=== PATIENT | male | born 1950 | race Caucasian/White ===

== ENCOUNTER → 2016-12-18 | Outpatient (CLI) | payer OTHER ==
[~2016-12-18] MED LIST: *BLDWK7; /OMEP10CA; KLS75TAB; immodium
== END ==
LOC: M WUC 09:28
PROVIDERS: ATTEND Urology
DX: Z85.46 Personal history of malignant neoplasm of prostate (principal)

== ENCOUNTER → 2017-06-18 | Outpatient (CLI) | payer OTHER | LOC: M WUC 09:29 | PROVIDERS: ATTEND Registered Nurse Emergency | DX: C61 Malignant neoplasm of prostate (principal) ==

== ENCOUNTER → 2017-08-17 | Outpatient (CLI) | payer OTHER ==
[2017-08-17 13:48] LABS: BASO # 0.1 10^3/uL (0.0-0.2); BASO % 1.1 % (0.0-1.0); EOS # 0.2 10^3/uL (0.0-0.50); EOS % 3.1 % (0.0-3.0); HEMATOCRIT 41.3 % (42.0-52.0); HEMOGLOBIN 13.8 g/dl (14.0-18.0); IMMATURE GRANULOCYTE % 0.1 % (0-0); LYMPH # 1.3 10^3/uL (1.5-4.5); MEAN CORPUSCULAR HEMOGLOBIN 29.7 pg (27.0-33.0); MEAN CORPUSCULAR HGB CONC 33.4 g/dl (32.0-36.5); MONO # 0.5 10^3/uL (0.0-0.8); MONO % 7.7 % (0.0-5.0); NEUTROPHILS # 4.9 10^3/uL (1.8-7.7); PLATELET COUNT, AUTOMATED 275 10^3/uL (150-450); RED BLOOD COUNT 4.64 10^6/uL (4.30-6.10); RED CELL DISTRIBUTION WIDTH 12.7 % (11.5-14.5)
[2017-08-17 14:28] LABS: FERRITIN 566 NG/ML (26-388); IRON (FE) 116 UG/DL (65-175); PERCENT SATURATION 43.3 % (19.7-50.0); TOTAL IRON BINDING CAPACITY 268 UG/DL (250-450)
== END ==
LOC: M WUC 10:31
DX: Z01.812 Encounter for preprocedural laboratory examination (principal); D64.9 Anemia, unspecified; M17.12 Unilateral primary osteoarthritis, left knee
CPT/HCPCS: 82040

== ENCOUNTER → 2018-01-06 | Outpatient (CLI) | payer OTHER ==
[2018-01-06 13:05] LABS: PROSTATIC SPECIFIC AG MONITOR 0.98 NG/ML (< 4.0)
== END ==
LOC: M WUC 09:19
DX: Z85.46 Personal history of malignant neoplasm of prostate (principal)
CPT/HCPCS: 84153

== ENCOUNTER → 2018-07-07 | Outpatient (CLI) | payer OTHER | LOC: M WUC 10:49 | PROVIDERS: ATTEND Urology | DX: C61 Malignant neoplasm of prostate (principal) ==

== ENCOUNTER → 2018-07-14 | Outpatient (CLI) | payer OTHER ==
--- NOTE | 2018-07-14 11:53 | REP ---
Clinical: Acute bronchitis . Comparison: 11/14/2008 . Technique: PA and lateral. Findings: The mediastinum and cardiac silhouette are normal. The lung jean are clear and without acute consolidation, effusion, or pneumothorax. The skeletal structures are intact and normal. Impression: 1. No focal consolidation. Electronically Signed by Hector Olivo MD 07/14/2018 11:45 A
== END ==
LOC: M WUC 11:17
PROVIDERS: ATTEND Physician Assistant
DX: J20.9 Acute bronchitis, unspecified (principal)

== ENCOUNTER → 2018-08-25 | Outpatient (CLI) | payer OTHER ==
--- NOTE | 2018-08-25 16:10 | REP ---
Chest two views HISTORY: Cough Comparison: 07/14/1989 The lungs are clear. The heart is normal in size. The pulmonary vasculature is normal in appearance. There is an old compression fracture of an upper thoracic vertebral body. IMPRESSION: No acute disease. Electronically Signed by Boo Roa MD 08/25/2018 04:01 P
== END ==
LOC: M WUC 11:58
PROVIDERS: ATTEND Family Medicine
DX: R05 Cough (principal)

== ENCOUNTER → 2019-01-18 | Outpatient (CLI) | payer MEDICARE | LOC: M WUC 15:05 | PROVIDERS: ATTEND Urology | DX: Z85.46 Personal history of malignant neoplasm of prostate (principal) ==

== ENCOUNTER 2019-05-25 12:15 | Day surgery (SDC) | payer MEDICARE ==
[~2019-05-25] VITALS: Ht 175.3 cm; Wt 118.4 kg
[~2019-05-25 12:15] MED LIST changes: +FLOM0.4C39 PO; +LISI10TA4 PO; +NAPR-837 PO; +NS 1,000 ML IV SCH; +ZANT150T40 PO
[2019-05-25] MEDS ORDERED: PROPOFOL 200 MG/20 ML VIAL As Ordered ONE (14:33)
[2019-05-25] MEDS ORDERED: LIDOCAINE 2% INJ 100 MG/5 ML SDV (FOR ANES.) As Ordered ONE (14:33)
--- NOTE | 2019-05-25 14:34 | ROOR ---
Patient Name: Art Keller Procedure Date: 05/25/2019 2:13 PM Date of : 1950 Age: 68 Room: [facility] Gender: Male Note Status: Finalized Procedure: Colonoscopy Indications: Screening for colorectal malignant neoplasm Providers: Jermaine Aragon Jr, MD Referring MD: Devon Gupta MD Requesting Provider: Medicines: Propofol per Anesthesia Complications: No immediate complications. Procedure: Pre-Anesthesia Assessment: - Prior to the procedure, a History and Physical was performed, and patient medications and allergies were reviewed. The patient is competent. The risks and benefits of the procedure and the sedation options and risks were discussed with the patient. All questions were answered and informed consent was obtained. Patient identification and proposed procedure were verified by the physician and the nurse in the pre-procedure area and in the procedure room. Mental Status Examination: alert and oriented. Airway Examination: normal oropharyngeal airway and neck mobility. Respiratory Examination: clear to auscultation. CV Examination: normal. ASA Grade Assessment: II - A patient with mild systemic disease. After reviewing the risks and benefits, the patient was deemed in satisfactory condition to undergo the procedure. The anesthesia plan was to use moderate sedation / analgesia (conscious sedation). Immediately prior to administration of medications, the patient was re-assessed for adequacy to receive sedatives. The heart rate, respiratory rate, oxygen saturations, blood pressure, adequacy of pulmonary ventilation, and response to care were monitored throughout the procedure. The physical status of the patient was re-assessed after the procedure. The Colonoscope was introduced through the anus and advanced to the cecum, identified by appendiceal orifice and ileocecal valve. The colonoscopy was performed without difficulty. The patient tolerated the procedure well. The quality of the bowel preparation was adequate. Findings: Multiple small and large-mouthed diverticula were found in the sigmoid colon. The rectum, descending colon, transverse colon, ascending colon, cecum, appendiceal orifice and ileocecal valve appeared normal. A polyp was found in the recto-sigmoid colon. The polyp was removed with a cold snare. Resection and retrieval were complete. Impression: - Diverticulosis in the sigmoid colon. - The rectum, descending colon, transverse colon, ascending colon, cecum, appendiceal orifice and ileocecal valve are normal. - One polyp at the recto-sigmoid colon, removed with a cold snare. Resected and retrieved. Recommendation: - Discharge patient to home (ambulatory). - Repeat colonoscopy in 5 years for surveillance based on pathology results. Jermaine Aragon MD Jermaine Aragon Jr, MD 05/25/2019 2:33:58 PM Electronically signed by Jermaine Aragon Jr, MD Number of Addenda: 0 Note Initiated On: 05/25/2019 2:13 PM Estimated Blood Loss: Estimated blood loss: none.
[2019-05-25 14:56] VITALS: BP 130/86
== END 2019-05-25 15:05 | disposition home or self-care (01) ==
LOC: M OPP 12:15
PROVIDERS: ATTEND Surgery
DX: Z12.11 Encounter for screening for malignant neoplasm of colon (principal); K57.30 Diverticulosis of large intestine without perforation or abscess without bleeding; D12.7 Benign neoplasm of rectosigmoid junction; I10 Essential (primary) hypertension; K21.9 Gastro-esophageal reflux disease without esophagitis; M19.90 Unspecified osteoarthritis, unspecified site; Z92.3 Personal history of irradiation; N40.1 Benign prostatic hyperplasia with lower urinary tract symptoms; Z87.891 Personal history of nicotine dependence; Z85.46 Personal history of malignant neoplasm of prostate; Z88.5 Allergy status to narcotic agent; Z79.899 Other long term (current) drug therapy

== ENCOUNTER → 2019-10-06 | Outpatient (CLI) | payer MEDICARE ==
[~2019-10-06] MED LIST changes: -NS 1,000 ML IV SCH
[2019-10-07 14:11] LABS: PSA TOTAL 0.4 ng/mL (0.0-4.0)
== END ==
LOC: M WUC 10:28
PROVIDERS: ATTEND Nurse Practitioner Family
DX: Z85.46 Personal history of malignant neoplasm of prostate (principal)

== ENCOUNTER 2020-03-19 17:04 | Inpatient (IN) | payer MEDICARE ==
[~2020-03-19] VITALS: Ht 175.3 cm; Wt 120.1 kg
[2020-03-19] MEDS ORDERED: OMEP10CASR PO (17:14)
[2020-03-19] MEDS ORDERED: ATOR1TAB19 PO (17:14)
[2020-03-19] MEDS ORDERED: KETOROLAC 30 MG/ML 1ML VIAL IV ONE (18:30)
[2020-03-19] MEDS ORDERED: ONDANSETRON 4MG/2ML VIAL IV ONE (18:30)
[2020-03-19] MEDS ORDERED: NS 1,000 ML IV ONE (18:30)
[2020-03-19 18:33] LABS: BASO % 0.4 % (0.0-1.0); EOS # 0.1 10^3/uL (0.0-0.5); EOS % 0.7 % (0.0-3.0); HEMATOCRIT 45.2 % (42.0-52.0); HEMOGLOBIN 15.2 g/dl (13.5-17.5); LYMPH # 0.9 10^3/uL (1.5-5.0); LYMPH % 8.9 % (24.0-44.0); MEAN CORPUSCULAR HEMOGLOBIN 29.9 pg (27.0-33.0); MEAN CORPUSCULAR HGB CONC 33.6 g/dl (32.0-36.5); MEAN CORPUSCULAR VOLUME 88.8 fl (80.0-96.0); MONO # 1.2 10^3/uL (0.0-0.8); MONO % 11.6 % (0.0-5.0); NEUTROPHILS # 8.2 10^3/uL (1.5-8.5); NEUTROPHILS % 78.1 % (36.0-66.0); PLATELET COUNT, AUTOMATED 293 10^3/uL (150-450); RED BLOOD COUNT 5.09 10^6/uL (4.30-6.10); WHITE BLOOD COUNT 10.5 10^3/uL (4.0-10.0)
[2020-03-19 18:59] LABS: ALBUMIN 4.1 GM/DL (3.2-5.2); ALT/SGPT 34 U/L (12-78); BILIRUBIN,DIRECT 0.4 MG/DL (0.0-0.2); BILIRUBIN,TOTAL 1.1 MG/DL (0.2-1.0); BLOOD UREA NITROGEN 26 MG/DL (7-18); CALCIUM LEVEL 9.2 MG/DL (8.8-10.2); CARBON DIOXIDE LEVEL 29 MEQ/L (21-32); CHLORIDE LEVEL 102 MEQ/L (98-107); CREATININE FOR GFR 1.09 MG/DL (0.70-1.30); GLOMERULAR FILTRATION RATE > 60.0 (>49); GLUCOSE, FASTING 174 MG/DL (70-100); LIPASE 30 U/L (73-393); POTASSIUM SERUM 3.9 MEQ/L (3.5-5.1); SODIUM LEVEL 139 MEQ/L (136-145); TOTAL PROTEIN 7.7 GM/DL (6.4-8.2)
[2020-03-19] MEDS ORDERED: ISOVUE-370 76% 100ML VIAL As Ordered ONE (19:11)
--- NOTE | 2020-03-19 19:57 | REPVR ---
PROCEDURE INFORMATION: Exam: CT Abdomen And Pelvis With Contrast Exam date and time: 03/19/2020 7:27 PM Age: 69 years old Clinical indication: Abdominal pain; Localized; Other: Central abd pain, no tolerate po TECHNIQUE: Imaging protocol: Computed tomography of the abdomen and pelvis with intravenous contrast. Radiation optimization: All CT scans at this facility use at least one of these dose optimization techniques: automated exposure control; mA and/or kV adjustment per patient size (includes targeted exams where dose is matched to clinical indication); or iterative reconstruction. Contrast material: ISOVUE 370; Contrast volume: 100 ml; Contrast route: INTRAVENOUS (IV); COMPARISON: No relevant prior studies available. FINDINGS: Lungs: 9 mm noncalcified nodule right lower lobe adjacent to the major fissure. 10 mm lobular noncalcified nodule left lower lobe. Liver: There is a diffuse decrease in hepatic parenchymal density, consistent with steatosis. Gallbladder and bile ducts: Normal. No calcified stones. No ductal dilation. Pancreas: Normal. No ductal dilation. Spleen: The spleen demonstrates punctate calcifications, consistent with remote granulomatous organism exposure. Adrenals: Normal. No mass. Kidneys and ureters: Normal. No hydronephrosis. Stomach and bowel: Multiple dilated small bowel loops transitioning to normal caliber in the right lower quadrant. Findings consistent with small-bowel obstruction. No significant colonic dilatation. Appendix: No evidence of appendicitis. Intraperitoneal space: Unremarkable. No free air. No significant fluid collection. Vasculature: The aortoiliac vessels demonstrate mild atherosclerotic calcification. Lymph nodes: Unremarkable. No enlarged lymph nodes. Bladder: Contracted urinary bladder. Reproductive: Fiducials demonstrated within the prostate gland. Bones/joints: Mild retrolisthesis of L5 on S1. Moderate to severe central spinal stenosis L3-L4 and severe central spinal stenosis L4-L5. Chronic fracture deformity right inferior pubic ramus. Soft tissues: Unremarkable. IMPRESSION: 1. 9 mm noncalcified nodule right lower lobe adjacent to the major fissure. 10 mm lobular noncalcified nodule left lower lobe. For patients at low risk (minimal or absent history of smoking and of other known risk factors), recommend CT at 3-6 months, then consider CT at 18-24 months. For patients at high risk (history of smoking or of other known risk factors), recommend CT at 3-6 months, then CT at 18-24 months. (Ruba et al., Fleischner Society, 2017) 2. There is a diffuse decrease in hepatic parenchymal density, consistent with steatosis. 3. Multiple dilated small bowel loops transitioning to normal caliber in the right lower quadrant. Findings consistent with small-bowel obstruction. Electronically signed by: Justin Ackerman On 03/19/2020 19:57:10 PM
[2020-03-19] MEDS ORDERED: OMEP1CAP73 PO (20:39)
[2020-03-19] MEDS: ATORVASTATIN 10 MG TAB PO SCH (21:00)
[2020-03-19] MEDS: LR 1,000 ML IV SCH (21:22)
[2020-03-19] MEDS ORDERED: ACETAMINOPHEN TAB 650MG DOSE (2X325MG) PO PRN (21:30)
[2020-03-19] MEDS ORDERED: ONDANSETRON 4MG/2ML VIAL IV PRN (21:30)
[2020-03-19] MEDS ORDERED: MORPHINE 2 MG/ML 1ML VIAL (J2270) IV PRN (21:30)
--- NOTE | 2020-03-19 21:43 | IPNPDOC ---
Text Note Date of Service The patient was seen on 03/19/20. NOTE Patient with one day history of abdominal distention, central abdominal crampy pain though reports intermittent flatus, bm this morning Impression and plan Partial small bowel obstruction history of prostate/pelvic radiation NGT IVF serial exams ditation [id number] VS,Fishbone, I+O VS, Fishbone, I+O Laboratory Tests 03/19/20 18:11 Vital Signs Date Time Temp Pulse Resp B/P (MAP) Pulse Ox O2 Delivery O2 Flow Rate FiO2 03/19/20 19:34 99.2 03/19/20 19:25 81 17 149/75 (99) 93 Room Air MARYANN KELLY MD Mar 19, 2020 21:43
[2020-03-20] MEDS: KETOROLAC 30 MG/ML 1ML VIAL IV PRN ×3 (01:52→15:59)
[2020-03-20 03:32] VITALS: BP 142/83
[2020-03-20 06:00] VITALS: BP 145/82
[2020-03-20 06:35] LABS: BASO % 0.4 % (0.0-1.0); EOS # 0.2 10^3/uL (0.0-0.5); EOS % 2.4 % (0.0-3.0); HEMATOCRIT 40.1 % (42.0-52.0); HEMOGLOBIN 13.3 g/dl (13.5-17.5); LYMPH # 1.4 10^3/uL (1.5-5.0); LYMPH % 15.3 % (24.0-44.0); MEAN CORPUSCULAR HEMOGLOBIN 30.2 pg (27.0-33.0); MEAN CORPUSCULAR HGB CONC 33.2 g/dl (32.0-36.5); MEAN CORPUSCULAR VOLUME 90.9 fl (80.0-96.0); MONO # 1.4 10^3/uL (0.0-0.8); MONO % 15.7 % (0.0-5.0); NEUTROPHILS # 5.9 10^3/uL (1.5-8.5); PLATELET COUNT, AUTOMATED 253 10^3/uL (150-450); RED BLOOD COUNT 4.41 10^6/uL (4.30-6.10)
[2020-03-20 06:57] LABS: BLOOD UREA NITROGEN 31 MG/DL (7-18); CALCIUM LEVEL 8.4 MG/DL (8.8-10.2); CARBON DIOXIDE LEVEL 30 MEQ/L (21-32); CHLORIDE LEVEL 106 MEQ/L (98-107); CREATININE FOR GFR 1.08 MG/DL (0.70-1.30); GLOMERULAR FILTRATION RATE > 60.0 (>49); GLUCOSE, FASTING 146 MG/DL (70-100); POTASSIUM SERUM 3.4 MEQ/L (3.5-5.1); SODIUM LEVEL 142 MEQ/L (136-145)
--- NOTE | 2020-03-20 07:45 | HPE ---
DATE OF ADMISSION: 03/19/2020 CHIEF COMPLAINT: Abdominal distention, central abdominal pain, nausea and vomiting. HISTORY OF PRESENT ILLNESS: Mr. Keller is a 69-year-old gentleman, who presented to the Emergency Department today with complaints of one day history of crampy central abdominal pain, associated with nausea, abdominal distention and now vomiting. He was in his usual state of health up until last night when he started feeling some crampy abdominal pain. This sort of calmed down through the night. This morning when he woke up, he could not keep anything down even the liquids that he drank he would throw it up probably about 30 minutes after drinking it. He reports discomfort over his central abdomen. He did have a normal bowel movement this morning and still reports passing intermittent flatus. Patient feels bloated and mildly uncomfortable. He had a prior episode back in 2008, where he had some enterocolitis and subsequently had an ileus versus partial small bowel obstruction, which was treated with nasogastric tube bile decompression and improved immediately. In between this, he had radiation to his pelvis secondary to prostate cancer. He does not have any history of hernia nor any history of abdominal surgeries. Patient reports feeling mildly improved and has not thrown up for about 7 to 8 hours now, though he still has some occasional crampy abdominal discomfort. Denies fevers or chills, or any sick contacts. ALLERGIES: Oxycodone. PAST MEDICAL HISTORY: Patient reports mild hearing loss. Reports history of hypertension, gastroesophageal reflux disease, as mentioned history of prostate cancer; treated with radiation, history of back pain; herniated disc, arthritis, history of fractures to the pelvis and tailbone. PAST SURGICAL HISTORY: As mentioned includes back surgery for herniated disc L4, L5, left knee total replacement. REVIEW OF SYSTEMS: Patient was in his usual state of health prior to the start of his symptoms last night. Patient denies any ongoing abnormal weight loss. No fevers or chills reported. No travel or sick contacts. He does report some mild hearing loss. He is not using any hearing aids. He wears glasses. Denies any hoarseness of voice or problems with swallowing. Patient denies any breathing problems, chronic cough or cold, or sleep apnea. Denies any chest pain on effort, angina, or paroxysmal nocturnal dyspnea. He does have hypertension and is treated with medication. He denies ay history of diabetes, though he is being suspected in being worked up currently. He denies any heat or cold intolerance. He does have some back problems. Gastrointestinal symptoms enumerated in the HPI. He had a prior colonoscopy last year in 2019, just showing tubular polyps. He reports history of gastroesophageal reflux. Patient denies any dysuria. He has a history of prostate cancer, for which he was treated with radiation and is in remission. He is taking Flomax. He denies any dribbling, nocturia or hematuria. Patient does not smoke. PHYSICAL EXAMINATION: VITALS: On arrival temp 98.1, pulse rate 96, respiratory rate 18, blood pressure 138/94, 98% on room air. HEENT: Patient seen in the room, appears relatively comfortable. He is able to get up from a supine position, not showing much discomfort. He is pleasant and cooperative. Fairly well built. Does not look chronically ill. HEENT: Normocephalic, atraumatic. [place] palpebral conjunctivae. NECK: Short and supple. CHEST: Kind of barrel-chested with no impaired respiratory effort. Lung sounds are clear to auscultation bilaterally, without wheezing. HEART: Regular heart rate and rhythm, without murmurs. ABDOMEN: Tensely distended, but remains soft, quite tympanitic to percussion. No significant umbilical or groin herniation. No surgical scars appreciated. Minimally uncomfortable but no definite tenderness on deep and light palpation. No rebound or guarding. Abdomen is quite quiet. EXTREMITIES: Does not show any significant edema. ANCILLARY STUDIES/LABORATORIES: White count 10.5, hemoglobin 15.2, hematocrit 45.2, platelet count 293,000. Sodium 139, potassium 3.9, chloride 102, CO2 29, BUN 26, creatinine 1.09, glucose 174. Total bilirubin 1.1 with direct only 0.4. The rest of AST, ALT normal. Alkaline phosphatase mildly high at 121. Lipase 30. IMAGING STUDIES: CT of the abdomen and pelvis has been performed, and this shows diffuse decreasing in parenchymal density, consistent with steatosis, multiple dilated small bowel loops with a transition to normal caliber in the right lower quadrant consistent with small bowel obstruction. IMPRESSION AND PLAN: Small bowel obstruction in patient without prior history of surgery, though he does have history of radiation to the pelvis. Patient seems to have a partial obstruction as he continues to be able to pass intermittent flatus, no signs of bowel strangulation or threatened bowel. He looks fairly comfortable, though he is very distended. We will place a nasogastric tube to continue bowel decompression. He has had prior experience with this, and is amenable to putting this. His BUN is slightly elevated, so he must have some mild dehydration. He will be provided I.V. fluids, likewise symptomatic treatment for now. I discussed with him our plan of therapy for conservative therapy now, but if there are any signs of bowel strangulation or threatened bowel or this is not resolved within 48 to 72 hours, may need surgical intervention. Likewise if this keeps on repeating, may need further workup on why he is developing bowel obstruction. MARCO
[2020-03-20] MEDS: PANTOPRAZOLE 40MG VIAL (C9113 PER 1) IV SCH (08:36)
[2020-03-20] MEDS: LR 1,000 ML IV SCH ×3 (08:37→23:48)
[2020-03-20] MEDS ORDERED: FLUBLOK(EGG FREE)(QUAD)INFLUENZA VACC 0.5ML SYRINGE 18YRS & OLDER IM ONE (09:00)
[2020-03-20] MEDS ORDERED: PREVNAR 13 VACCINE SYRINGE IM ONE (09:00)
[2020-03-20] MEDS: TAMSULOSIN 0.4 MG CAP PO SCH ×2 (09:59→20:30)
[2020-03-20] MEDS: ENOXAPARIN 40MG/0.4ML SYRINGE (J1650 PER 10MG) SC SCH (10:00)
[2020-03-20] MEDS: lisinopriL 10 MG TAB PO SCH (10:00)
--- NOTE | 2020-03-20 13:05 | IPNPDOC ---
Text Note Date of Service The patient was seen on 03/20/20. NOTE Patient seen and examined sitting up on bed. Reports feeling better, still pas sing intermittent flatus though still have intermittent crampy abdominal pain. NGT in place drain ~600 mLs on placement, 200 afterwards HD stable On examination Patient looks more comfortable than on initial presentation Nasogastric to working with bilious drainage into the canister Abdomen is soft, minimally distended. Mild tenderness over the right lower quadrant area Impression and plans small bowel obstruction dehydration morbid obesity continue ngt decompression reviewed XRay with him, sb over left abdomen still looks distended so does not look to be resolved yet at this point continue npo ambulate to hallways recheck xray tomorrow if not resolved in 48-72 hrs would consider surgery. VS,Jannbone, I+O VS, Jannbone, I+O Laboratory Tests 03/19/20 18:11 03/20/20 06:02 Vital Signs Date Time Temp Pulse Resp B/P (MAP) Pulse Ox O2 Delivery O2 Flow Rate FiO2 03/20/20 10:00 142/78 03/20/20 06:00 97.0 76 20 93 03/20/20 03:32 Room Air 03/20/20 03:12 2.0 I&O- Last 24 Hours up to 6 AM 03/20/20 05:59 Intake Total 1750 ml Balance 1750 ml MARYANN KELLY MD Mar 20, 2020 13:05
[2020-03-20 14:00] VITALS: BP 138/73
[2020-03-20] MEDS: ATORVASTATIN 10 MG TAB PO SCH (20:30)
[2020-03-20 22:00] VITALS: BP 142/63
[2020-03-21] MEDS: KETOROLAC 30 MG/ML 1ML VIAL IV PRN (00:42)
[2020-03-21 06:00] VITALS: BP 137/73
[2020-03-21] MEDS ORDERED: MOM 30ML SUSPENSION UDC PO ONE (06:30)
[2020-03-21] MEDS: LR 1,000 ML IV SCH ×3 (07:50→20:27)
[2020-03-21] MEDS: TAMSULOSIN 0.4 MG CAP PO SCH ×2 (08:13→20:18)
[2020-03-21] MEDS: ENOXAPARIN 40MG/0.4ML SYRINGE (J1650 PER 10MG) SC SCH (08:13)
[2020-03-21] MEDS: PANTOPRAZOLE 40MG VIAL (C9113 PER 1) IV SCH (08:13)
[2020-03-21] MEDS: lisinopriL 10 MG TAB PO SCH (08:14)
[2020-03-21 09:02] LABS: BASO % 0.4 % (0.0-1.0); EOS # 0.2 10^3/uL (0.0-0.5); HEMATOCRIT 38.6 % (42.0-52.0); HEMOGLOBIN 12.7 g/dl (13.5-17.5); LYMPH % 11.3 % (24.0-44.0); MEAN CORPUSCULAR HEMOGLOBIN 29.8 pg (27.0-33.0); MEAN CORPUSCULAR HGB CONC 32.9 g/dl (32.0-36.5); MEAN CORPUSCULAR VOLUME 90.6 fl (80.0-96.0); MONO % 11.6 % (0.0-5.0); NEUTROPHILS # 6.7 10^3/uL (1.5-8.5); NEUTROPHILS % 74.5 % (36.0-66.0); PLATELET COUNT, AUTOMATED 239 10^3/uL (150-450); RED BLOOD COUNT 4.26 10^6/uL (4.30-6.10); WHITE BLOOD COUNT 8.9 10^3/uL (4.0-10.0)
[2020-03-21 09:25] LABS: BLOOD UREA NITROGEN 31 MG/DL (7-18); CALCIUM LEVEL 8.3 MG/DL (8.8-10.2); CARBON DIOXIDE LEVEL 28 MEQ/L (21-32); CHLORIDE LEVEL 105 MEQ/L (98-107); GLOMERULAR FILTRATION RATE > 60.0 (>49); GLUCOSE, FASTING 116 MG/DL (70-100); POTASSIUM SERUM 3.5 MEQ/L (3.5-5.1); SODIUM LEVEL 142 MEQ/L (136-145)
--- NOTE | 2020-03-21 10:36 | IPNPDOC ---
Text Note Date of Service The patient was seen on 03/21/20. NOTE Reports feeling better, had a BM today after being given milk of magnesia this morning, denies cramping, nausea. NGT in place with minimal output now. VS stable afebrile Seen walking inside the room Comfortable Awake, alert, oriented abdomen very protuberant, soft, mildly distended, nontender on palpation Impression/Plans: Small bowel obstruction seems to be resolving axr pending will clamp ngt and if tolerated d/c VS,Fishbone, I+O VS, Fishbone, I+O Laboratory Tests 03/21/20 08:43 Vital Signs Date Time Temp Pulse Resp B/P (MAP) Pulse Ox O2 Delivery O2 Flow Rate FiO2 03/21/20 08:14 138/72 03/21/20 06:00 98.5 75 16 93 Room Air 03/20/20 03:12 2.0 I&O- Last 24 Hours up to 6 AM 03/21/20 06:00 Intake Total 1500 ml Output Total 1590 ml Balance -90 ml MARYANN KELLY MD Mar 21, 2020 10:36
[2020-03-21 14:00] VITALS: BP 141/71
[2020-03-21] MEDS: ATORVASTATIN 10 MG TAB PO SCH (20:18)
[2020-03-21 22:00] VITALS: BP 145/80
[2020-03-22] MEDS: LR 1,000 ML IV SCH (00:25)
[2020-03-22 06:00] VITALS: BP 141/77
[2020-03-22] MEDS: ENOXAPARIN 40MG/0.4ML SYRINGE (J1650 PER 10MG) SC SCH (09:00)
[2020-03-22 10:40] VITALS: BP 141/76
[2020-03-22] MEDS: TAMSULOSIN 0.4 MG CAP PO SCH (10:40)
[2020-03-22] MEDS: lisinopriL 10 MG TAB PO SCH (10:40)
[2020-03-22] MEDS: PANTOPRAZOLE 40MG VIAL (C9113 PER 1) IV SCH (10:41)
--- NOTE | 2020-04-16 12:45 | REP ---
ABDOMINAL RADIOGRAPHS CLINICAL: Follow-up small bowel obstruction. TECHNIQUE: Two supine views of the abdomen and pelvis. FINDINGS: Continued dilated air filled loops of small bowel primarily noted in the left mid abdomen measuring up to 4.8 cm in diameter consistent with small bowel obstruction. No obvious free air to suggest perforation. Skeletal structures stable. IMPRESSION: Findings consistent with continued small bowel obstruction, possibly minimally improved. MTDD
--- NOTE | 2020-04-16 12:46 | REP ---
ABDOMINAL SERIES RADIOGRAPHS CLINICAL: Follow-up small bowel obstruction. TECHNIQUE: Upright view of the chest with supine and upright views of the abdomen and pelvis. FINDINGS: A nasogastric tube is identified just beyond the level of the left hemidiaphragm and may warrant advancement to ensure that the side port remains below the diaphragm. There is no evidence for free air to suggest perforation. Distended dilated air filled loops of small bowel measure up to 6.8 cm in diameter and consistent with high-grade small bowel obstruction. No organomegaly. Small amount of residual contrast in the bladder. Skeletal structures intact. IMPRESSION: * Findings consistent with high-grade small bowel obstruction. * No evidence for free air to suggest perforation. * Nasogastric tube warrants advancement. MTDD
--- NOTE | 2020-05-27 12:22 | DS.PDOC ---
Discharge Summary General Date of Admission Mar 19, 2020 at 21:22 Date of Discharge 2019 Attending Physician: MARYANN KELLY MD Discharge Summary PROCEDURES PERFORMED DURING STAY: None. ADMITTING DIAGNOSES: 1. small bowel obstruction 2. morbid obesity 3. history of radiation for prostate cancer. DISCHARGE DIAGNOSES: 1. small bowel obstruction resolved 3. morbid obesity 3. history of radiation for prostate cancer. COMPLICATIONS/CHIEF COMPLAINT: Small Bowel Obstruction. HISTORY OF PRESENT ILLNESS: Patient is admitted through the emergency room when he presented with 1 day history of crampy central abdominal pain for to the history and physical examination documentation for details HOSPITAL COURSE: A nasogastric tube was placed in the emergency room. It was likewise given IV fluid hydration for her mild dehydration. He was given as needed pain medications for pain control. He was mildly distended but relatively comfortable with no signs of perforation or threatened bowel and presentation. Serial abdomi nal examination likewise serial x-rays were performed with gradual improvement and eventually spontaneous bowel movement. I clamped the nasogastric tube was about hospital day 2 with him tolerating it and this was subsequently discharged and was started on clear liquids. The abdominal x-rays documents improvement of the bowel obstruction. He continued to have spontaneous bowel movements and was able to tolerate food and subsequently discharged home. DISCHARGE MEDICATIONS: Please see below. ALLERGIES: Please see below. PHYSICAL EXAMINATION ON DISCHARGE: VITAL SIGNS: Please see below. GENERAL: Patient is comfortable HEENT: Normocephalic and atraumatic. Lips and mucosa moist NECK: Short, supple, no jugular venous distention CARDIOVASCULAR EXAMINATION: Regular heart rate and rhythm without murmurs RESPIRATORY EXAMINATION: Lung sounds are clear to auscultation bilaterally without wheezing ABDOMINAL EXAMINATION: Very protuberant, obese abdomen, mildly distended, nontender on palpation, active bowel sounds EXTREMITIES: No significant extremity edema SKIN: No cellulitis, no skin rashes NEUROLOGICAL EXAMINATION: Awake, alert and oriented LABORATORY DATA: Please see below. IMAGING: CT abdomen and pelvis, serial x-rays PROGNOSIS: Good ACTIVITY: As tolerated. DIET: As tolerated DISCHARGE PLAN: Patient is discharged home. He can follow-up in an as-needed basis. If with recurrence of symptoms may need further workup and even diagnostic laparoscopy for cause of the obstruction DISPOSITION: 01 Home, Self-Care. DISCHARGE INSTRUCTIONS: 1. As above. DISCHARGE CONDITION: Stable. TIME SPENT ON DISCHARGE: Greater than 30 minutes. Discharge Medications Scheduled Atorvastatin Calcium (Atorvastatin Calcium) 10 Mg Tablet, 10 MG PO QPM, (Reported) Lisinopril (Lisinopril) 10 Mg Tablet, 10 MG PO DAILY, (Reported) Omeprazole (Omeprazole) 20 Mg Capsule.dr, 20 MG PO QPM, (Reported) Tamsulosin HCl (Flomax) 0.4 Mg Capsule, 0.4 MG PO BID, (Reported) Scheduled PRN Naproxen (Naprosyn) 500 Mg Tablet, 500 MG PO BID PRN for PAIN, (Reported) Allergies Coded Allergies: oxycodone (Verified Allergy, Intermediate, rash, 05/18/19) MARYANN KELLY MD May 27, 2020 12:22
== END 2020-03-22 12:29 | disposition home or self-care (01) | DRG 390 ==
LOC: M ED 17:04 → M ED INP 21:22 → ENRESERV 03-20 02:40 → M MSPAV 03-20 03:32
PROVIDERS: ADMIT Surgery; ATTEND Surgery
DX: K56.609 Unspecified intestinal obstruction, unspecified as to partial versus complete obstruction (principal); I10 Essential (primary) hypertension; K21.9 Gastro-esophageal reflux disease without esophagitis; Z85.46 Personal history of malignant neoplasm of prostate; E66.01 Morbid (severe) obesity due to excess calories; E86.0 Dehydration

== ENCOUNTER → 2020-09-18 | Outpatient (CLI) | payer MEDICARE ==
[~2020-09-18] MED LIST changes: +ATOR1TAB19 PO; +LISI10TA22 PO; -LISI10TA4 PO; +OMEP10CASR PO; +OMEP1CAP73 PO
== END ==
LOC: M WUC 10:52
PROVIDERS: ATTEND Nurse Practitioner Family
DX: Z85.46 Personal history of malignant neoplasm of prostate (principal)

== ENCOUNTER 2021-08-29 17:08 | Inpatient (IN) | payer MEDICARE ==
[~2021-08-29] VITALS: Ht 177.8 cm; Wt 108.0 kg
[2021-08-29 19:05] LABS: BASO # 0.1 10^3/uL (0.0-0.2); BASO % 0.4 % (0.0-1.0); EOS # 0.1 10^3/uL (0.0-0.5); EOS % 0.8 % (0.0-3.0); HEMATOCRIT 47.3 % (42.0-52.0); LYMPH # 1.4 10^3/uL (1.5-5.0); LYMPH % 12.7 % (24.0-44.0); MEAN CORPUSCULAR HEMOGLOBIN 29.4 pg (27.0-33.0); MEAN CORPUSCULAR HGB CONC 33.8 g/dl (32.0-36.5); MEAN CORPUSCULAR VOLUME 86.8 fl (80.0-96.0); MONO # 1.2 10^3/uL (0.0-0.8); MONO % 10.7 % (2.0-8.0); NEUTROPHILS # 8.5 10^3/uL (1.5-8.5); NEUTROPHILS % 74.9 % (36.0-66.0); PLATELET COUNT, AUTOMATED 322 10^3/uL (150-450); RED BLOOD COUNT 5.45 10^6/uL (4.30-6.10); WHITE BLOOD COUNT 11.3 10^3/uL (4.0-10.0)
[2021-08-29 19:27] LABS: ALBUMIN 3.7 GM/DL (3.2-5.2); BILIRUBIN,DIRECT 0.4 MG/DL (0.0-0.2); BILIRUBIN,TOTAL 1.1 MG/DL (0.2-1.0); TOTAL PROTEIN 7.4 GM/DL (6.4-8.2)
[2021-08-29] MEDS ORDERED: ONDANSETRON 4MG/2ML VIAL IV ONE (19:35)
[2021-08-29] MEDS ORDERED: NS 1,000 ML IV ONE (19:35)
[2021-08-29] MEDS ORDERED: ISOVUE-370 76% 100ML VIAL As Ordered ONE (19:42)
[2021-08-29] MEDS ORDERED: FARX1TAB3 PO (22:15)
[2021-08-29] MEDS ORDERED: METF750T36 (22:15)
[2021-08-29] MEDS ORDERED: FISH1000 PO (22:24)
[2021-08-29] MEDS ORDERED: METF-877 PO (22:24)
[2021-08-29] MEDS ORDERED: HOME MED LIST COMPLETE! XX SCH (22:30)
[2021-08-30] MEDS: LR 1,000 ML IV SCH ×4 (00:40→20:04)
[2021-08-30] MEDS: PANTOPRAZOLE 40MG VIAL (C9113 PER 1) IV SCH ×2 (00:40→20:53)
[2021-08-30] MEDS ORDERED: ONDANSETRON 4MG/2ML VIAL IV PRN (01:00)
[2021-08-30 01:27] VITALS: BP 135/72
[2021-08-30 06:00] VITALS: BP 132/71
[2021-08-30] MEDS: TAMSULOSIN 0.4 MG CAP PO SCH ×2 (08:43→20:53)
[2021-08-30] MEDS: ATORVASTATIN 10 MG TAB PO SCH (08:47)
[2021-08-30 10:53] LABS: BLOOD UREA NITROGEN 25 MG/DL (7-18); CALCIUM LEVEL 8.5 MG/DL (8.8-10.2); CARBON DIOXIDE LEVEL 24 MEQ/L (21-32); CHLORIDE LEVEL 104 MEQ/L (98-107); CREATININE FOR GFR 0.88 MG/DL (0.70-1.30); GLOMERULAR FILTRATION RATE > 60.0 (>49); GLUCOSE, FASTING 103 MG/DL (70-100); POTASSIUM SERUM 3.7 MEQ/L (3.5-5.1); SODIUM LEVEL 138 MEQ/L (136-145)
[2021-08-30 12:00] VITALS: BP 131/73
[2021-08-30 14:00] VITALS: BP 133/71
[2021-08-30 16:00] VITALS: BP 132/70
[2021-08-30 20:00] VITALS: BP 134/71
[2021-08-31 01:30] VITALS: BP 136/65
[2021-08-31] MEDS: LR 1,000 ML IV SCH (05:37)
[2021-08-31] MEDS: KETOROLAC 30 MG/ML 1ML VIAL IV PRN ×2 (05:37→11:13)
[2021-08-31 06:00] VITALS: BP 140/69
[2021-08-31] MEDS: ATORVASTATIN 10 MG TAB PO SCH (09:42)
[2021-08-31] MEDS: TAMSULOSIN 0.4 MG CAP PO SCH ×2 (09:42→21:27)
[2021-08-31 10:00] VITALS: BP 139/68
[2021-08-31] MEDS ORDERED: IBUPROFEN 400MG TAB PO PRN (13:55)
[2021-08-31 14:00] VITALS: BP 139/66
[2021-08-31] MEDS: ACETAMINOPHEN TAB 650MG DOSE (2X325MG) PO PRN (21:28)
[2021-08-31] MEDS: PANTOPRAZOLE 40MG VIAL (C9113 PER 1) IV SCH (21:28)
[2021-08-31 22:00] VITALS: BP 132/69
[2021-09-01 02:00] VITALS: BP 149/80
[2021-09-01 06:00] VITALS: BP 137/65
[2021-09-01 08:35] LABS: BLOOD UREA NITROGEN 17 MG/DL (7-18); CARBON DIOXIDE LEVEL 26 MEQ/L (21-32); CHLORIDE LEVEL 106 MEQ/L (98-107); CREATININE FOR GFR 0.74 MG/DL (0.70-1.30); GLOMERULAR FILTRATION RATE > 60.0 (>49); GLUCOSE, FASTING 100 MG/DL (70-100); POTASSIUM SERUM 3.4 MEQ/L (3.5-5.1); SODIUM LEVEL 139 MEQ/L (136-145)
[2021-09-01] MEDS: ATORVASTATIN 10 MG TAB PO SCH (09:18)
[2021-09-01] MEDS: TAMSULOSIN 0.4 MG CAP PO SCH ×2 (09:19→20:08)
[2021-09-01 10:00] VITALS: BP 144/69
[2021-09-01 14:00] VITALS: BP 141/68
[2021-09-01 20:00] VITALS: BP 140/70
[2021-09-01] MEDS: PANTOPRAZOLE 40MG VIAL (C9113 PER 1) IV SCH (20:08)
[2021-09-02] VITALS: BP 141/69
[2021-09-02 04:00] VITALS: BP 135/68
[2021-09-02] MEDS: ACETAMINOPHEN TAB 650MG DOSE (2X325MG) PO PRN (04:17)
[2021-09-02] MEDS: TAMSULOSIN 0.4 MG CAP PO SCH (08:54)
[2021-09-02] MEDS: ATORVASTATIN 10 MG TAB PO SCH (08:54)
[2021-09-02 08:55] VITALS: BP 136/68
== END 2021-09-02 12:45 | disposition home or self-care (01) | DRG 390 ==
LOC: M ED 17:08 → M ED INP 23:52 → M MS5PR 08-30 01:20
PROVIDERS: ADMIT Surgery; ATTEND Surgery
DX: K56.609 Unspecified intestinal obstruction, unspecified as to partial versus complete obstruction (principal); C61 Malignant neoplasm of prostate; Z92.3 Personal history of irradiation; Z79.899 Other long term (current) drug therapy; Z88.5 Allergy status to narcotic agent; Z20.822 Contact with and (suspected) exposure to COVID-19; E11.9 Type 2 diabetes mellitus without complications; I10 Essential (primary) hypertension; K21.9 Gastro-esophageal reflux disease without esophagitis; E78.5 Hyperlipidemia, unspecified; N40.0 Benign prostatic hyperplasia without lower urinary tract symptoms; E66.9 Obesity, unspecified; Z68.34 Body mass index [BMI] 34.0-34.9, adult; E87.6 Hypokalemia

== ENCOUNTER → 2021-09-16 | Outpatient (CLI) | payer MEDICARE ==
[~2021-09-16] MED LIST changes: +FARX1TAB3 PO; +FISH1000 PO; +METF-877 PO; +METF750T36
== END ==
LOC: M WUC 09:57
PROVIDERS: ATTEND Urology
DX: N40.1 Benign prostatic hyperplasia with lower urinary tract symptoms (principal); Z85.46 Personal history of malignant neoplasm of prostate

== ENCOUNTER → 2022-03-27 | Outpatient (CLI) | payer MEDICARE ==
[2022-03-30 23:07] LABS: PSA TOTAL <0.1 ng/mL (0.0-4.0)
== END ==
LOC: M WUC 10:13
PROVIDERS: ATTEND Nurse Practitioner Family
DX: N40.1 Benign prostatic hyperplasia with lower urinary tract symptoms (principal); Z85.46 Personal history of malignant neoplasm of prostate

== ENCOUNTER → 2023-03-29 | Outpatient (CLI) | payer MEDICARE | LOC: M WUC 09:18 | PROVIDERS: ATTEND Urology | DX: N40.1 Benign prostatic hyperplasia with lower urinary tract symptoms (principal); N13.9 Obstructive and reflux uropathy, unspecified ==

== ENCOUNTER → 2023-08-04 | Outpatient (CLI) | payer MEDICARE | LOC: M RAD 09:52 | PROVIDERS: ATTEND Family Medicine | DX: Z13.6 Encounter for screening for cardiovascular disorders (principal); Z87.891 Personal history of nicotine dependence; R14.0 Abdominal distension (gaseous) ==

== ENCOUNTER → 2024-03-28 | Outpatient (CLI) | payer MEDICARE | LOC: M WUC 08:06 | PROVIDERS: ATTEND Nurse Practitioner Family | DX: Z85.46 Personal history of malignant neoplasm of prostate (principal) ==

== ENCOUNTER 2024-11-08 08:39 | Day surgery (SDC) | payer MEDICARE ==
[~2024-11-08] VITALS: Ht 175.3 cm; Wt 110.7 kg
[~2024-11-08 08:39] MED LIST changes: -FLOM0.4C39 PO; +OMEG10002 PO; +TAMS-18 PO
[2024-11-08] MEDS ORDERED: LIDOCAINE 2% 100MG/5ML SDV (FOR ANES.) As Ordered ONE (10:02)
[2024-11-08] MEDS ORDERED: propofoL 200 MG/20 ML VIAL As Ordered ONE (10:02)
[2024-11-08 11:46] VITALS: TEMP 98.1
[2024-11-08 11:53] VITALS: BP 142/80; O2SAT 96
== END 2024-11-08 12:17 | disposition home or self-care (01) ==
LOC: M OPP 08:39
PROVIDERS: ATTEND Surgery
DX: K63.5 Polyp of colon (principal); K57.30 Diverticulosis of large intestine without perforation or abscess without bleeding; Z86.0100 Personal history of colon polyps, unspecified; Z88.5 Allergy status to narcotic agent; Z79.84 Long term (current) use of oral hypoglycemic drugs; Z79.899 Other long term (current) drug therapy; Z87.891 Personal history of nicotine dependence

== ENCOUNTER → 2025-03-29 | Outpatient (CLI) | payer MEDICARE | LOC: M WUC 08:47 | PROVIDERS: ATTEND Nurse Practitioner Family | DX: Z85.46 Personal history of malignant neoplasm of prostate (principal) ==